=== PATIENT | female | born 1970 | race Caucasian/White ===

== ENCOUNTER → 2024-03-14 | Outpatient (CLI) | payer BC, SELFPAY ==
--- NOTE | 2024-03-14 | XR_ITS ---
Examination: Sternum 2 views TECHNIQUE: Oblique lateral sternum 2 views Exam date and time: March 14, 2024 1155 hours INDICATIONS: Patient fell 2 weeks ago with injury of the sternum, sternal pain FINDINGS: No acute sternal fracture depicted No dislocation IMPRESSION: No acute cervical fracture depicted If pain persists, consider CT chest her and without contrast follow-up
--- NOTE | 2024-03-14 | XR_ITS ---
Examination: PA lateral chest 2 views TECHNIQUE: Upright PA lateral chest 2 views Exam date and time: March 14, 2024 1147 hours INDICATIONS: Intermittent congestion years FINDINGS: Normal heart size No pneumonia or pulmonary edema Recommend lordotic chest to exclude 8 mm pulmonary nodule right upper lobe IMPRESSION: No pneumonia or pulmonary edema Recommend AP lordotic chest follow-up to exclude small pulmonary nodule right upper lobe
--- NOTE | 2024-03-14 | XR_ITS ---
Examination: Hand, right 3 views Technique: Hand AP, oblique, lateral 3 views Date and time of exam: March 14, 2024 1147 hours INDICATIONS: Right hand pain after falling 2 weeks ago. FINDINGS: No acute fracture No dislocation IMPRESSION: No acute fracture
--- NOTE | 2024-03-14 | XR_ITS ---
Examination: Foot, right, 3 views Technique: AP, oblique, lateral views foot, 3 views Date and time of exam: March 14, 2024 1203 hours INDICATIONS: Right foot pain after falling 2 weeks ago FINDINGS: Old fracture proximal phalanx fifth digit No acute fracture No dislocation IMPRESSION: No acute fracture
[2024-03-14 13:26] LABS: Alanine Aminotransferase 24 U/L (10-49); Albumin, Serum 4.6 gm/dL (3.5-5.0); Albumin/Globulin Ratio 1.8 (1.2-2.2); Alkaline Phosphatase 73 U/L (46-116); Anion Gap 8 (7-16); Aspartate Amino Transferase 17 U/L (0-34); BUN/Creatinine Ratio 16 Ratio (12-20); Bilirubin,Total 0.7 mg/dL (0.3-1.2); Blood Urea Nitrogen 11 mg/dL (9-23); Calcium 9.4 mg/dL (8.3-10.6); Calcium (Corrected) 9.4 mg/dL (8.5-10.1); Carbon Dioxide 26.4 mMol/L (20.0-31.0); Cardiac Risk Estimate 5.9 RATIO (3.7-5.6); Chloride 103 mMol/L (98-107); Cholesterol 243 mg/dL (132-200); Creatinine (Component) 0.7 mg/dL (0.6-1.3); Globulin 2.5 gm/dL (2.3-3.5); Glucose 101 mg/dL (74-106); HDL Cholesterol 41 mg/dL (40-60); LDL Cholesterol,Calculated 153 mg/dL (0-130); Osmolality,Calculated 273 (275-295); Potassium 4.9 mMol/L (3.4-5.1); Sodium 137 mMol/L (136-145); Total Protein 7.1 gm/dL (5.7-8.2); Triglycerides 246 mg/dL (30-150); eGFR > 60 See Note
== END | disposition home or self-care (01) ==
LOC: CDIM 11:01 → COPL 12:10
PROVIDERS: PCP Family Medicine; Referring Provider Family Medicine; Visit Provider Radiology Diagnostic Radiology
DX: M79.671 Pain in right foot (principal); R07.89 Other chest pain; M79.641 Pain in right hand; E78.1 Pure hyperglyceridemia; Z13.1 Encounter for screening for diabetes mellitus
CPT/HCPCS: 36415; 71046; 71120; 73130; 73630; 80053; 80061

== ENCOUNTER → 2024-03-16 | Outpatient (CLI) | payer BC, SELFPAY ==
--- NOTE | 2024-03-16 09:36 | XR_ITS ---
Examination: Upright PA lateral chest AP lordotic chest single view TECHNIQUE: Upright PA lateral chest 2 views AP lordotic chest upright single view total 3 views Exam date and time: March 16, 2024 0942 hours INDICATIONS: Chest film March 14, 2024 suspicious for 8 mm nodule right upper lobe FINDINGS: No significant cardiac enlargement Lordotic chest does not confirm pulmonary nodule in the right upper lobe or elsewhere in the lungs IMPRESSION: No pulmonary nodules confirmed
== END | disposition home or self-care (01) ==
PROVIDERS: PCP Family Medicine; Referring Provider Family Medicine; Visit Provider Family Medicine
DX: R91.8 Other nonspecific abnormal finding of lung field (principal)
CPT/HCPCS: 71047

== ENCOUNTER → 2024-07-18 | Outpatient (CLI) | payer BC, SELFPAY ==
[2024-07-18 11:59] LABS: Free T4 (Free Thyroxine) 1.09 ng/dL (0.89-1.76); Thyroid Stimulating Hormone 0.36 uIU/mL (0.55-4.78)
[2024-07-18 12:00] LABS: Vitamin D 25 Hydroxy Total 50.7 ng/mL (7.3-40.2)
[2024-07-21 07:19] LABS: T3,Total* 108 ng/dL (76-181)
== END | disposition home or self-care (01) ==
PROVIDERS: PCP Family Medicine; Referring Provider Nurse Practitioner Family; Visit Provider Nurse Practitioner Family
DX: E05.90 Thyrotoxicosis, unspecified without thyrotoxic crisis or storm (principal)
CPT/HCPCS: 36415; 82306; 84439; 84443; 84480